=== PATIENT | male | born 2000 | race Caucasian/White ===

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

== ENCOUNTER 2021-10-25 12:32 | Emergency (ER) | payer OTHER ==
[2021-10-26 14:04] LABS: SARS-CoV-2 PCR by NAA DETECTED (NotDetected)
== END 2021-10-25 13:15 | disposition home or self-care (01) ==
LOC: NAV ERS 12:32
DX: U07.1 COVID-19 (principal); M54.16 Radiculopathy, lumbar region
CPT/HCPCS: 99284; U0003; U0005